=== PATIENT | male | born 1960 | race Caucasian/White ===

== ENCOUNTER 2017-12-10 13:54 | Emergency (ER) | payer SELFPAY, OTHER ==
[2017-12-10] MEDS: IBUPROFEN 600 MG TAB PO (15:18)
== END 2017-12-10 17:22 | disposition home or self-care (01) ==
LOC: FTE 13:54
DX: M54.5 Low back pain (principal); F17.210 Nicotine dependence, cigarettes, uncomplicated; I10 Essential (primary) hypertension; M79.662 Pain in left lower leg; Z79.84 Long term (current) use of oral hypoglycemic drugs
CPT/HCPCS: 72100; 73590; 73610; 73630-LT; 99284-25

== ENCOUNTER 2018-03-02 01:26 | Emergency (ER) | payer OTHER ==
[2018-03-02] MEDS: MECLIZINE 12.5 MG TAB PO (02:39)
[2018-03-02 02:49] LABS: ADD MAN DIFF? NO
[2018-03-02 02:50] LABS: WHITE BLOOD COUNT 6.5 10^3/ul (4.8-10.8)
[2018-03-02 02:50] LABS: BASOPHILS % 0.6 % (0.0-2.0); EOSINOPHILS # 0.3 10^3/ul (0.0-0.5); HEMATOCRIT 45.1 % (42.0-52.0); HEMOGLOBIN 15.6 g/dl (14.0-18.0); LYMPHOCYTES # 2.6 10^3/ul (0.8-2.9); MEAN CORPUSCULAR HEMOGLOBIN 31.7 pg (29.0-33.0); MEAN CORPUSCULAR HGB CONC 34.6 g/dl (32.0-37.0); MEAN CORPUSCULAR VOLUME 91.7 fl (82.0-101.0); MEAN PLATELET VOLUME 10.5 fl (7.4-10.4); MONOCYTE # 0.6 10^3/ul (0.3-0.9); MONOCYTES % 8.9 % (0.0-11.0); PLATELET COUNT 218 10^3/UL (140-415); RED BLOOD COUNT 4.92 10^6/ul (4.70-6.10); RED CELL DISTRIBUTION WIDTH 11.9 % (11.5-14.5)
[2018-03-02 03:10] LABS: ANION GAP 13 (8-16); BLOOD UREA NITROGEN 19 mg/dl (7-20); CALCIUM 8.7 mg/dl (8.4-10.2); CARBON DIOXIDE 24 mmol/L (21-31); CHLORIDE 106 mmol/L (97-110); GLUCOSE 152 mg/dl (70-220); POTASSIUM 3.7 mmol/L (3.5-5.1); SODIUM 139 mmol/L (135-144)
[2018-03-02 03:13] LABS: INR 0.87; PARTIAL THROMBOPLASTIN TIME 27.3 Sec (23.0-35.0); PROTIME 11.9 Sec (11.9-14.9); PT RATIO 0.9
[2018-03-02 03:20] LABS: TROPONIN-I < 0.012 ng/ml (0.000-0.120)
== END 2018-03-02 04:53 | disposition home or self-care (01) ==
LOC: E/R 01:26
DX: R42 Dizziness and giddiness (principal); I10 Essential (primary) hypertension; E11.9 Type 2 diabetes mellitus without complications; I25.10 Atherosclerotic heart disease of native coronary artery without angina pectoris; R55 Syncope and collapse; Z87.891 Personal history of nicotine dependence
CPT/HCPCS: 36415; 70450; 80048; 84484; 85025; 85610; 85730; 93005; 99285-25